=== PATIENT | male | born 1960 | race Caucasian/White ===

== ENCOUNTER 2024-09-29 12:13 | Inpatient (IN) | payer SELFPAY ==
[2024-09-29] MEDS ORDERED: ONDANSETRON 4 MG/2 ML VIAL IV PRN (12:54)
[2024-09-29] MEDS: NA CHLORIDE 0.9% 1,000 ML IV SCH (13:22)
[2024-09-29] MEDS: MORPHINE 2 MG/ML SYR IV PRN (13:22)
[2024-09-29 13:24] VITALS: BMI 31.4
[2024-09-29] MEDS ORDERED: PROMETHAZINE INJ 25 MG/ML AMP IV PRN (13:39)
[2024-09-29] MEDS: HYDROMORPHONE HCL 0.5 MG/0.5 ML INJ IV ONE (14:12)
--- NOTE | 2024-09-29 15:17 | P.HP ---
Certification for Inpatient Patient admitted to: Inpatient Practitioner: I am a practitioner with admitting privileges, knowledge of patient current condition, hospital course, and medical plan of care. Services: Services provided to patient in accordance with Admission requirements found in Title 42 Section 412.3 of the Code of Federal Regulations Patient History Date of Service: 09/29/24 Reason for admission: Acute cholecystitis History of Present Illness: 64-year-old male with no significant past medical history presents to the hospital via transfer from [facility] for surgical evaluation for acute cholecystitis with Dr. Wong to consult. he reports presenting to the emergency room with RUQ, epigastric abdominal pain radiates to his back, that started last night. That is getting progressively worse. He reports associated nausea, worse with p.o. intake he reports a history of gallbladder disease, he denies prior hospital admission however reports multiple ER visits due to gall bladder disease. He denies fever, chest pain, shortness of breath, alcohol intake plan to admit for acute cholecystitis with surgery to consult. Allergies No Known Allergies Allergy (Unverified 09/29/24 13:11) Home Medications: NK [No Home Meds] 09/29/24 - Past Medical/Surgical History Has patient received pneumonia vaccine in the past: No -: Gallbladder disease -: rotator cuff - Social History Smoking Status: Former smoker Alcohol use: No CD- Drugs: No Caffeine use: Yes Review of Systems 10-point ROS is otherwise unremarkable Physical Examination - Vital Signs Temperature: 97.5 F Blood Pressure: 142/85 Pulse: 65 Respirations: 20 Pulse Ox (%): 100 - Physical Exam General: Alert, Oriented x3, Mild distress HEENT: Atraumatic, Normocephalic Neck: 2+ carotid pulse no bruit, JVD not distended Respiratory: Clear to auscultation bilaterally, Normal air movement Cardiovascular: Normal pulses, Regular rate/rhythm, Normal S1 S2 Gastrointestinal: Normal bowel sounds, Tenderness (Right upper quadrant, epigastric) Musculoskeletal: No clubbing, No swelling Integumentary: No breakdown, No significant lesion Neurological: Normal speech, Normal strength at 5/5 x4 extr, Sensation intact, Cranial nerves 3-12 intact Assessment and Plan - Problems (Diagnosis) (1) Acute cholecystitis Current Visit: Yes Status: Acute - Plan Acute cholecystitis Admit to [facility] Surgery to consult for evaluation for acute cholecystitis Clear liquid diet, n.p.o. after midnight IV fluids, IV antibiotics, as needed analgesics, antiemetic Full code DVT SCDs Diet n.p.o. after midnight Discharge Plan: Home - Advance Directives Does patient have a Living Will: No Does patient have a Durable POA for Healthcare: No - Code Status/Comfort Care Code Status: Full Code Critical Care: No Time Spent Managing Pts Care (In Minutes): 55
[2024-09-29] MEDS: PIPER TAZO 3.375 GM in NA CHLORIDE 0.9% 100 ML IV SCH (17:11)
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
[2024-09-30] MEDS: ACETAMINOPHEN 500 MG TAB PO PRN
[2024-09-30] MEDS: KETOROLAC 30 MG/ML INJ IV ONE (03:07)
[2024-09-30 04:54] LABS: Absolute Basophils 0.1 K/uL (0-0.5); Absolute Lymphocytes (CBC) 0.6 K/uL (0.7-4.9); Absolute Monocytes 1.3 K/uL (0.1-1.3); Absolute Neutrophil 12.8 K/uL (1.8-8.0); Basophils % 0.5 % (0-1.3); Eosinophils % 0.2 % (0-4.4); Hematocrit 44.8 % (39.6-49.0); Hemoglobin 15.6 g/dL (13.6-17.9); Lymphocytes % 4.4 % (15.3-44.8); MCH 31.2 pg (27.0-35.0); MCHC 34.9 g/dL (32.0-36.0); MCV 89.5 fL (80-100); MPV 8.1 fL (7.6-11.3); Monocytes % 8.7 % (3.3-12.3); Neutrophils % 86.2 % (41.7-73.7); Platelets 227 thou/uL (152-406); Red Cell Distribution Width 13.7 % (12.1-15.2)
[2024-09-30 05:00] LABS: PT Prothrombin Time 12.4 SECONDS (9.4-12.5); PTT, Activated Partial Thromb 30.3 SECONDS (24.3-36.9); Protime INR 1.18
[2024-09-30 05:08] LABS: Albumin 3.3 g/dL (3.4-5.0); Albumin/Globulin Ratio 0.9 (1.1-1.8); Anion Gap 8.9 mEq/L (5.0-15.0); Bilirubin Total 2.6 mg/dL (0.2-1.0); Globulin 3.5 g/dL (2.3-3.5); Potassium 3.9 mEq/L (3.5-5.1); Protein, Total 6.8 g/dL (6.4-8.2)
[2024-09-30 05:13] LABS: Band Neutrophils 10 % (0-1); Blood Morphology Comment NOT SEEN (NOT SEEN); Differential Total Cells Count 100; Lymphocytes 7 % (15-42); Monocytes 7 % (0-10); Platelet Estimate ADEQ; Segmented Neutrophils 76 % (40-80)
[2024-09-30] MEDS ORDERED: ONDANSETRON 4 MG/2 ML VIAL ONE (11:59)
[2024-09-30] MEDS ORDERED: FENTANYL CITR 100 MCG/2 ML ONE ×2 (11:59→13:12)
[2024-09-30] MEDS ORDERED: NEOSTIGMINE 1 MG/ML -10 ML VIAL ONE (11:59)
[2024-09-30] MEDS ORDERED: GLYCOPYRROLATE 0.2 MG/ML SYR ONE (11:59)
[2024-09-30] MEDS ORDERED: propofoL 200 MG/20 ML VIAL IV ONE (11:59)
[2024-09-30] MEDS ORDERED: ROCURONIUM 50 MG/5 ML VIAL IV ONE (12:00)
[2024-09-30] MEDS ORDERED: MIDAZOLAM HCL 2 MG/2 ML INJ ONE (12:00)
[2024-09-30] MEDS ORDERED: LIDOCAINE 2% MPF 5 ML VIAL ONE (12:00)
[2024-09-30] MEDS ORDERED: KETOROLAC 30 MG/ML INJ ONE (12:02)
[2024-09-30] MEDS ORDERED: dexAMETHasone 10 MG/ML VIAL ONE (12:05)
[2024-09-30] MEDS ORDERED: EPHEDRINE SULF 50 MG/ML VIAL ONE (12:05)
[2024-09-30] MEDS: NA CHLORIDE 0.9% 1,000 ML ONE (13:30)
--- NOTE | 2024-09-30 14:29 | P.BOP ---
Preoperative diagnosis: acute cholecystitis, symptomatic cholelithiasis Postoperative diagnosis: same, suppurative cholecystitis Primary procedure: Laparoscopic cholecystectomy County Treasurer: Kathy Saleem (Latasha) Estimated blood loss: <30cc Specimen: gb Findings: as above Anesthesia: General Complications: None Drain(s): AMRCELO drain Transferred to: Recovery Room Condition: Good
[2024-09-30] MEDS: HYDROCODONE/APAP 5/325 MG TAB PO PRN (17:04)
--- NOTE | 2024-09-30 17:58 | OP ---
Date of Procedure: 09/30/2024 Surgeon: Lloyd Wong MD [employer] Teacher: DORIAN Joshi Preoperative Diagnoses: Acute cholecystitis, symptomatic cholelithiasis. Postoperative Diagnoses: Acute cholecystitis, symptomatic cholelithiasis plus suppurative cholecysti tis. Procedure: Laparoscopic cholecystectomy Estimated Blood Loss: Less than 30 cc. Specimen: Gallbladder. Findings: Patient has inflamed distended gallbladder consistent with cholecystitis with some purulen t tissue around the area. Anesthesia: General plus local. Complications: None. Drains: MARCELO #10. Indication: This is the case, who came to us with acute cholecystitis, symptomatic cholelithiasis, s een by the ER. The pain did not get better, so he was admitted to the hospital with the condition to treat his condition and also he wants laparoscopic cholecystectomy done at the same time during this admission. He is not from this area and he is planning to return to his hometown after the surgery. I explained to him and advised the importance or the ideal situation of him to be at least a week a round the area, so we can remove his stitches and see if there are any other medical issues that he m ight have. He is trying to see what he can do about that. The benefits, alternatives, and risks of laparoscopic, possible open cholecystectomy fully explained which include, but not limited to, infect ion, bleeding, damage to adjacent structures, anesthesia complication, choledocholithiasis, bile leak , pancreatitis, MT, and even . He also understands this may not relieve any symptoms. He might need more than one surgical intervention. He understood, signed a consent. Description Of Procedure: Patient was brought to the operating room, placed in supine position. Ane sthesia was induced without complication. Abdominal area was prepped and draped in the usual sterile fashion. Local anesthesia was applied followed by sharp incision of the skin in the supraumbilical region. Incision was carried down to fascia, which was opened under direct vision. Peritoneum was e ncountered, opened under direct vision. Vicryl #1 placed inside the fascia. Susy trocar was caref ully introduced. Pneumoperitoneum was obtained. Immediately, we noticed distended gallbladder with multiple omental adhesions to it, and so we placed 3 more trocars in the right upper quadrant under d irect visualization. With the help of LigaSure, we were able to remove the adhesions away from the g allbladder with minimal bleeding. Then, the gallbladder was very distended, so I had to put an Endo needle through the gallbladder to deflate that partially under direct visualization. Then, the needl e was removed under direct visualization that allowed me to put a grasper in the fundus of the gallbl adder, another grasper in the infundibulum retracting the gallbladder in the inferolateral fashion ex posing the triangle of Calot, and obtaining critical view. We noticed that not only it was swollen b ut also it had some fibrin and some purulent discharge next to the gallbladder. I did not see any pe rforation at this moment, but we saw the inflammation and infection in that area. I put a grasper in the fundus of the gallbladder, another grasper in the infundibulum retracting the gallbladder in the inferolateral fashion exposing the triangle of Calot and obtaining critical view. Cystic duct and c ystic artery were clearly isolated, freed circumferentially, and a connection between those and the g allbladder were clearly identified. I proceeded to ligate those by using at least 3 clips proximal, 1 clip distal, ligation in the middle. Same was done with the cystic artery. No bile leak. No blee ding. The gallbladder was removed from the liver using Bovie cauterizer and removed from the abdomin al cavity using EndoCatch through the umbilical incision, and due to all that inflammation, I left a MARCELO drain in that region exiting to one of the trocar site and securing that in place with the 3-0 nyl on. We checked the area once again. No bile leak. No bleeding. Clips were intact. At that moment , I proceeded to remove the trocars under direct vision, deflated pneumoperitoneum. Closed the fasci a with #1 Vicryl, irrigated subcutaneous tissue, closed that with 3-0 chromic and the skin with stapl es. Sponge counts and instrument counts correct. Patient tolerated the procedure well. Patient was sent to Recovery in stable condition. We explained to him that we are going to continue him on anti biotics. If he goes home, we need him at least next week early to remove his MARCELO drain and then a wee k later to remove his oswaldo. HM/MODL Voice ID: [id number] Report ID: [id number]
[2024-09-30 22:52] VITALS: O2SAT 98
--- NOTE | 2024-10-01 07:36 | P.PN ---
Date of Service: 09/30/24 Subjective NPO for acute cholecystitis, with Dr. Wong today Review of Systems 10-point ROS is otherwise unremarkable Physical Examination - Vital Signs reviewed - Physical Exam General: Alert, Oriented x3, afebrile, HEENT: Atraumatic, Normocephalic Neck: 2+ carotid pulse no bruit, JVD not distended Respiratory: Clear to auscultation bilaterally, Normal air movement Cardiovascular: Normal pulses, Regular rate/rhythm, Normal S1 S2 Gastrointestinal: Normal bowel sounds, Tenderness (Right upper quadrant, epigastric) Musculoskeletal: No clubbing, No swelling Integumentary: No breakdown, No significant lesion Neurological: Normal speech, Normal strength at 5/5 x4 extr, Sensation intact, Cranial nerves 3-12 intact Assessment and Plan - Problems (Diagnosis) (1) Acute cholecystitis Current Visit: Yes Status: Acute - Plan Acute cholecystitis Admit to [facility] Surgery to consult for evaluation for acute cholecystitis Clear liquid diet, n.p.o. after midnight IV fluids, IV antibiotics, as needed analgesics, antiemetic Full code DVT SCDs Diet n.p.o. after midnight Discharge Plan: Home - Advance Directives Does patient have a Living Will: No Does patient have a Durable POA for Healthcare: No - Code Status/Comfort Care Code Status: Full Code Critical Care: No Time Spent Managing Pts Care (In Minutes): 30
--- NOTE | 2024-10-01 07:37 | P.DS ---
Admission Date: 09/29/24 Discharge Date: 10/01/24 Disposition: ROUTINE DISCHARGE Discharge Condition: GOOD Reason for Admission: Acute cholecystitis Brief History of Present Illness: 64-year-old male with no significant past medical history presents to the hospital via transfer from [facility] for surgical evaluation for acute cholecystitis with Dr. Wong to consult. he reports presenting to the emergency room with RUQ, epigastric abdominal pain radiates to his back, that started last night. That is getting progressively worse. He reports associated nausea, worse with p.o. intake he reports a history of gallbladder disease, he denies prior hospital admission however reports multiple ER visits due to gallbladder disease. He denies fever, chest pain, shortness of breath, alcohol intake plan to admit for acute cholecystitis with surgery to consult. - Physical Exam General: Alert, Oriented x3, HEENT: Atraumatic, Normocephalic Neck: 2+ carotid pulse no bruit, JVD not distended Respiratory: Clear to auscultation bilaterally, Normal air movement Cardiovascular: Normal pulses, Regular rate/rhythm, Normal S1 S2 Gastrointestinal: Normal bowel sounds, Tenderness Musculoskeletal: No clubbing, No swelling Integumentary: No breakdown, No significant lesion Neurological: Normal speech, Normal strength at 5/5 x4 extr, Hospital Course: 64-year-old male with no significant past medical history presents to the hospital via transfer from [facility] for surgical evaluation for acute cholecystitis with Dr. Wong to consult. he reports presenting to the emergency room with RUQ, epigastric abdominal pain radiates to his back, that started last night. That is getting progressively worse. He reports associated nausea, worse with p.o. intake he reports a history of gallbladder disease, he denies prior hospital admission however reports multiple ER visits due to gallbladder disease. He denies fever, chest pain, shortness of breath, alcohol intake. Admitted for acute cholecystitis with surgery to consult. He is status post laparoscopic cholecystectomy with a MARCELO drain with Dr. Wong 09/30 Discharged home on p.o. analgesics, antibiotics, take as directed, Medications may cause constipation, take eori-scw-gnuocso stool softeners. No driving or operating heavy equipment while on pain medication -Patient has a MARCELO drain instructed on use prior to discharge Assessment Acute cholecystitis-status post laparoscopic cholecystectomy with a MARCELO drain with Dr. Wong 09/30 Transaminitis-liver ultrasound ordered GOAL: Clear understanding of disease process INSTRUCTIONS: Physician Discharge Instructions: -Follow-up with PCP in 1 to 2 weeks -Follow-up with Dr. Wong after discharge -Please call Dr. Mckeon at [phone] if any questions regarding hospital stay -Please call nursing station at [phone] if any nursing or medication questions -Return to the emergency room if symptoms worsen Diet: ADA, low sodium Activity: Fall precautions Vital Signs/Physical Exam: Temp Pulse Resp BP Pulse Ox 97.2 F 68 16 104/63 95 10/01/24 04:00 10/01/24 04:00 10/01/24 04:00 10/01/24 04:00 10/01/24 04:00 Laboratory Data at Discharge: WBC 14.80 thou/uL (4.3-10.9) H 09/30/24 04:33 Hgb 15.6 g/dL (13.6-17.9) 09/30/24 04:33 Hct 44.8 % (39.6-49.0) 09/30/24 04:33 Plt Count 227 thou/uL (152-406) 09/30/24 04:33 PT 12.4 SECONDS (9.4-12.5) 09/30/24 04:33 INR 1.18 09/30/24 04:33 APTT 30.3 SECONDS (24.3-36.9) 09/30/24 04:33 Sodium 135 mEq/L (136-145) L 09/30/24 04:33 Potassium 3.9 mEq/L (3.5-5.1) 09/30/24 04:33 BUN 13 mg/dL (7-18) 09/30/24 04:33 Creatinine 1.15 mg/dL (0.70-1.30) 09/30/24 04:33 Glucose 117 mg/dL (74-106) H 09/30/24 04:33 Total Bilirubin 2.6 mg/dL (0.2-1.0) H 09/30/24 04:33 AST 206 U/L (15-37) H 09/30/24 04:33 ALT 327 U/L (16-61) H 09/30/24 04:33 Alkaline Phosphatase 117 U/L (45-117) 01/22/25 04:33 Home Medications: Amox/Clavulanate [Augmentin 875-125 Tab] 1 each PO BID #20 tab 10/01/24 Hydrocodone 10/APAP 325 [Logan 10/325] 1 tab PO Q6H PRN #20 tab 10/01/24 New Medications: Amox/Clavulanate [Augmentin 875-125 Tab] 1 each PO BID #20 tab Hydrocodone 10/APAP 325 [Logan 10/325] 1 tab PO Q6H PRN #20 tab PRN Reason: Pain Physician Discharge Instructions: OK TO DC IV AND DC HOME FOLLOW-UP WITH PRIMARY CARE PROVIDER IN 1-2 WEEKS FOLLOW-UP WITH General Surgery in 1 week; patient will need MARCELO drain removed RETURN TO THE ER IF symptoms worsen CALL DR. MCKEON AT [phone] IF ANY QUESTIONS REGARDING HOSPITAL STAY. PLEASE CALL THE FLOOR AT [phone] IF ANY MEDICATION OR NURSING QUESTIONS. Diet: Regular Activity: Fall precautions Followup: Rodrigo Khoury PA [Primary Care Provider] - Lloyd Wong MD [ACTIVE - CAN ADMIT] - Time spent managing pt's care (in minutes): 45
[2024-10-01 08:20] LABS: Absolute Neutrophil 18.6 K/uL (1.8-8.0); Basophils % 0.2 % (0-1.3); Hematocrit 40.9 % (39.6-49.0); Hemoglobin 13.9 g/dL (13.6-17.9); Lymphocytes % 4.8 % (15.3-44.8); MCH 30.7 pg (27.0-35.0); MCV 90.4 fL (80-100); MPV 8.2 fL (7.6-11.3); Monocytes % 4.9 % (3.3-12.3); Neutrophils % 90.1 % (41.7-73.7); Platelets 215 thou/uL (152-406); RBC Red Blood Cell Count 4.52 M/uL (4.33-5.43); Red Cell Distribution Width 13.8 % (12.1-15.2)
[2024-10-01 08:47] LABS: Albumin 2.7 g/dL (3.4-5.0); Albumin/Globulin Ratio 0.8 (1.1-1.8); Anion Gap 6.3 mEq/L (5.0-15.0); Bilirubin Total 0.8 mg/dL (0.2-1.0); Globulin 3.6 g/dL (2.3-3.5); Potassium 4.3 mEq/L (3.5-5.1); Protein, Total 6.3 g/dL (6.4-8.2)
[2024-10-01 08:55] VITALS: BP 135/77; TEMP 98.1
[2024-10-01 09:41] LABS: White Blood Cell Scan OK (OK)
[2024-10-01 09:42] LABS: Blood Morphology Comment NOT SEEN (NOT SEEN); Platelet Estimate ADEQ; Platelets Clumped FEW
--- NOTE | 2024-10-01 12:16 | RAD REPORT ---
EXAMINATION: Ultrasound of the liver CLINICAL HISTORY: Elevated liver enzymes COMPARISON: None FINDINGS: The liver has a normal echotexture. Hepatopedal flow is present. A lesion is not seen. Cholecystectomy. Spleen measures 11 cm. Vague hypoechoic structure lies adjacent to the spleen measuring 7 cm. Evaluat ion of the spleen is suboptimal. IMPRESSION: Unremarkable liver ultrasound 7 cm hypoechoic structure adjacent to the spleen. It is uncertain whether this represents an old subc apsular bleed in this patient with known prior splenic abnormality. The evaluation of the spleen is suboptimal. Further evaluation could be obtained with a CT abdomen.
--- NOTE | 2024-10-01 16:35 | P.PN ---
Date of Service: 10/01/24 Subjective Elevated white count, on IV antibiotics, no reported fever Diet advanced, tolerated diet, no nausea Review of Systems 10-point ROS is otherwise unremarkable Physical Examination - Vital Signs reviewed - Physical Exam General: Alert, Oriented x3, afebrile, HEENT: Atraumatic, Normocephalic Neck: 2+ carotid pulse no bruit, JVD not distended Respiratory: Clear to auscultation bilaterally, Normal air movement Cardiovascular: Normal pulses, Regular rate/rhythm, Normal S1 S2 Gastrointestinal: Normal bowel sounds, Tenderness MARCELO drain., 5 laparoscopic incisions intact Musculoskeletal: No clubbing, No swelling Integumentary: No breakdown, No significant lesion Neurological: Normal speech, Normal strength at 5/5 x4 extr, Sensation intact, Cranial nerves 3-12 intact Assessment and Plan - Problems (Diagnosis) (1) Acute cholecystitis Current Visit: Yes Status: Acute - Plan Acute cholecystitis Admit to [facility] Surgery to consult for evaluation for acute cholecystitis Clear liquid diet, n.p.o. after midnight IV fluids, IV antibiotics, as needed analgesics, antiemetic Full code DVT SCDs Diet regular diet Discharge Plan: Home - Advance Directives Does patient have a Living Will: No Does patient have a Durable POA for Healthcare: No - Code Status/Comfort Care Code Status: Full Code Critical Care: No Time Spent Managing Pts Care (In Minutes): 35
== END 2024-10-01 12:18 | disposition left against medical advice (07) | DRG 419 ==
LOC: ERHOLD 12:13 → 2ND 12:52
PROVIDERS: ADMIT Hospitalist; ATTEND Hospitalist
PROC: 0FT44ZZ Resection of Gallbladder, Percutaneous Endoscopic Approach (ICD-10-PCS; principal; 2024-09-30 12:30)
DX: K80.00 Calculus of gallbladder with acute cholecystitis without obstruction (principal); R74.01 Elevation of levels of liver transaminase levels
CPT/HCPCS: 36415; 76705; 80053; 85025; 85610; 85730; 88304; 94010; J1100; J1171; J2003; J2250; J2270; J2405; J2543; J2704; J2710; J3010; J7030